=== PATIENT | male | born 1985 | race Caucasian/White ===

== ENCOUNTER 2021-03-02 13:08 | Emergency (ER) | payer OTHER ==
[~2021-03-02] VITALS: Ht 180.3 cm; Wt 81.6 kg
[2021-03-02 13:16] VITALS: BP 150/99
[2021-03-02] MEDS ORDERED: OLANZapine 10 MG VIAL IM ONE (14:50)
[2021-03-02 15:57] VITALS: BP 150/99
== END 2021-03-02 15:57 | disposition home or self-care (01) ==
LOC: MED 13:08
DX: F20.9 Schizophrenia, unspecified (principal)
CPT/HCPCS: 99283; J3490

== ENCOUNTER 2021-03-02 17:05 | Emergency (ER) | payer OTHER ==
[~2021-03-02] VITALS: Ht 180.3 cm; Wt 81.6 kg
[2021-03-02 17:13] VITALS: BP 144/100
[2021-03-02 17:37] VITALS: BP 144/100
== END 2021-03-02 17:38 ==
LOC: MED 17:05
DX: F20.9 Schizophrenia, unspecified (principal); F12.10 Cannabis abuse, uncomplicated; Z02.89 Encounter for other administrative examinations
CPT/HCPCS: 99283